=== PATIENT | female | born 1990 | race African-American/Black ===

== ENCOUNTER 2018-09-05 22:08 | Inpatient (IN) | payer MEDICAID ==
[~2018-09-05] VITALS: Ht 162.6 cm; Wt 81.6 kg
[2018-09-05] MEDS ORDERED: LACTATED RINGERS 1,000 ML IV SCH (22:26)
[2018-09-05] MEDS ORDERED: DEXT 5%/LR + PITOCIN 20UNITS/L 1,000 ML IV SCH (22:26)
[2018-09-05] MEDS ORDERED: MISOPROSTOL 100MCG TABLET VG NR (22:30)
[2018-09-05] MEDS ORDERED: NALOXONE HCL 0.4 MG/ML 1ML VIAL IM PRN (22:30)
[2018-09-05] MEDS ORDERED: CARBOPROST TROMETHAMINE 250 MCG/ML AMPUL IM PRN (22:30)
[2018-09-05] MEDS ORDERED: METHYLERGONOVINE MALEATE 0.2 MG/ML IM PRN (22:30)
[2018-09-05] MEDS ORDERED: AMPICILLIN 2,000 MG in SODIUM CHLORIDE 0.9% 100 ML IV SCH (23:00)
[2018-09-05] MEDS ORDERED: MORPHINE SULFATE/PF 1MG/ML 10ML AMP ONE (23:19)
[2018-09-05] MEDS ORDERED: FENTANYL CITRATE/PF 50MCG/ML 2ML VIAL ONE (23:19)
[2018-09-05 23:32] LABS: BASOPHILS % 0.8 % (0.0-2.0); EOSINOPHILS % 2.4 % (0.0-5.0); HEMATOCRIT. 41.4 % (36.0-48.0); HEMOGLOBIN. 13.9 g/dL (12.0-16.0); LYMPHOCYTES % 33.9 % (20.0-50.0); MEAN CORPUSCULAR HEMOGLOBIN 30.7 pg (28.0-32.0); MEAN PLATELET VOLUME 10.6 fl (7.4-10.4); MONOCYTES % 9.5 % (2.0-8.0); NEUTROPHILS % 53.4 % (40.0-76.0); PLATELET 220 x1000/uL (130-400); RED BLOOD CELL COUNT 4.55 mill/uL (4.2-5.4); RED CELL DISTRIBUTION WIDTH 13.1 % (11.6-14.6)
[2018-09-05 23:34] LABS: PARTIAL THROMBOPLASTIN TIME 30.5 sec (23.4-31.0)
[2018-09-05] MEDS ORDERED: MIDAZOLAM HCL 2 MG/2 ML VIAL ONE (23:49)
[2018-09-06 00:02] LABS: CLARITY URINE TURBID (CLEAR); COLOR URINE YELLOW (YELLOW); KETONES URINE 1+ (NEGATIVE); LEUKOCYTE ESTERASE URINE 2+ (NEGATIVE); NITRITE URINE NEGATIVE (NEGATIVE); OCCULT BLOOD URINE NEGATIVE (NEGATIVE); PH URINE 6.5 (4.5-8.0); PROTEIN URINE NEGATIVE (NEGATIVE); SPECIFIC GRAVITY URINE 1.016 (1.005-1.030)
[2018-09-06 00:13] LABS: HEPATITIS B SURFACE ANTIGEN NEGATIVE
[2018-09-06] MEDS ORDERED: RHO(D) IMMUNE GLOBULIN 300 MCG/SYR IM PRN (00:15)
[2018-09-06] MEDS ORDERED: HYDROCODONE/ACETAMINOPHEN 5/325MG TABLET PO PRN (00:15)
[2018-09-06] MEDS ORDERED: BISACODYL 10MG SUPP PR PRN (00:15)
[2018-09-06] MEDS ORDERED: IBUPROFEN 400MG TABLET PO PRN (00:15)
[2018-09-06 00:18] LABS: *AMPHETAMINES SCREEN URINE NEGATIVE (NEGATIVE); *BARBITURATES SCREEN URINE NEGATIVE (NEGATIVE); *BENZODIAZEPINES SCREEN URINE NEGATIVE (NEGATIVE); *COCAINE SCREEN URINE NEGATIVE (NEGATIVE); METHADONE URINE SCREEN NEGATIVE (NEGATIVE)
[2018-09-06 00:19] LABS: OPIATES URINE SCREEN NEGATIVE (NEGATIVE); PHENCYCLIDINE URINE SCREEN NEGATIVE (NEGATIVE)
[2018-09-06 00:21] LABS: CANNABINOID URINE SCREEN PRESUMTIVE POSITIVE (NEGATIVE)
[2018-09-06] MEDS ORDERED: OXYTOCIN 10 UNITS/ML 1ML ONE (00:41)
[2018-09-06] MEDS ORDERED: CEFAZOLIN SODIUM 1000MG/VIAL ONE (00:41)
[2018-09-06] MEDS ORDERED: BUPIVACAINE HCL/DEXTROSE/PF 0.75% 2ML AMP INJ ONE (00:42)
[2018-09-06] MEDS ORDERED: ONDANSETRON HCL 4MG/2ML INJ ONE (00:42)
[2018-09-06] MEDS ORDERED: DIPHENHYDRAMINE 50MG/ML VIAL IV PRN (01:00)
[2018-09-06] MEDS ORDERED: MORPHINE SULFATE 4 MG/ML CPJ (NOT FOR IM USE) IV PRN (01:00)
[2018-09-06] MEDS ORDERED: ONDANSETRON HCL 4MG/2ML INJ IV PRN (01:00)
[2018-09-06] MEDS ORDERED: KETOROLAC 30MG/ML VIAL IV PRN (01:15)
[2018-09-06 02:50] VITALS: BP 106/62
[2018-09-06] MEDS ORDERED: DEXT 5%/LR + PITOCIN 20UNITS/L 1,000 ML IV SCH (03:00)
[2018-09-06 03:05] VITALS: BP 110/70
[2018-09-06 03:50] VITALS: BP 110/77
[2018-09-06] MEDS: ACETAMINOPHEN WITH CODEINE 300/30MG TABLET PO PRN (06:56)
[2018-09-06] MEDS: PRENATAL VIT/FE FUMARATE/FA TABLET PO SCH (08:16)
[2018-09-06] MEDS: KETOROLAC 30MG/ML VIAL IV SCH ×3 (08:16→21:41)
[2018-09-06] MEDS: SIMETHICONE 80MG TABLET CHEW PO SCH ×3 (08:17→21:31)
[2018-09-06 08:30] VITALS: BP 116/69
[2018-09-06] MEDS ORDERED: METOCLOPRAMIDE HCL 10MG/2ML VIAL IV SCH (09:00)
[2018-09-06] MEDS ORDERED: KETOROLAC 30MG/ML VIAL ONE (14:35)
[2018-09-06 16:11] VITALS: BP 101/66
[2018-09-06 19:30] VITALS: BP 104/62
[2018-09-07 04:45] VITALS: BP 102/63
[2018-09-07 07:47] VITALS: BP 93/51
[2018-09-07] MEDS: SIMETHICONE 80MG TABLET CHEW PO SCH ×4 (09:00→21:28)
[2018-09-07] MEDS: IBUPROFEN 800MG TABLET PO PRN ×2 (09:02→17:47)
[2018-09-07] MEDS: MAGNESIUM/ALUMINUM HYDROXIDE/SIMETHICONE 30ML UDC PO SCH ×4 (09:02→21:27)
[2018-09-07] MEDS: PRENATAL VIT/FE FUMARATE/FA TABLET PO SCH (09:02)
[2018-09-07 16:21] VITALS: BP 116/72
[2018-09-07 19:45] VITALS: BP 106/67
[2018-09-07] MEDS: ACETAMINOPHEN WITH CODEINE 300/30MG TABLET PO PRN (21:41)
[2018-09-07 22:00] VITALS: BP 119/66
[2018-09-08 03:58] VITALS: BP 111/67
[2018-09-08 07:43] VITALS: BP 99/67
[2018-09-08] MEDS: MAGNESIUM/ALUMINUM HYDROXIDE/SIMETHICONE 30ML UDC PO SCH (08:40)
[2018-09-08] MEDS: PRENATAL VIT/FE FUMARATE/FA TABLET PO SCH (08:40)
[2018-09-08] MEDS: SIMETHICONE 80MG TABLET CHEW PO SCH (08:40)
[2018-09-08] MEDS: IBUPROFEN 800MG TABLET PO PRN (08:40)
[2018-09-08] MEDS: ACETAMINOPHEN WITH CODEINE 300/30MG TABLET PO PRN (12:31)
[2018-09-11 19:06] LABS: CANNABINOID CONFIRMATION URINE Positive (.)
== END 2018-09-08 12:50 | disposition home or self-care (01) | DRG 540 ==
LOC: 8 EST LDRP 22:08 → OBSVTOIN 22:08 → 8EST 09-06 02:30 → UNDODISIN 09-06 11:25
PROVIDERS: ADMIT Obstetrics & Gynecology; ATTEND Obstetrics & Gynecology
PROC: 10D00Z1 Extraction of Products of Conception, Low, Open Approach (ICD-10-PCS; principal; 2018-09-06)
DX: O34.211 Maternal care for low transverse scar from previous cesarean delivery (principal); Z37.0 Single live birth; Z3A.38 38 weeks gestation of pregnancy
CPT/HCPCS: 36415; 80305; 80349; 86592; 86703; 86762; 86850; 86900; 87340; 88307; 99281; J0290; J0690; J1885; J2250; J2270; J2274; J2405; J2590; J3010; J3490; J7050

== ENCOUNTER 2022-05-24 06:45 | Emergency (ER) | payer MEDICAID, OTHER ==
[~2022-05-24] VITALS: Ht 162.6 cm; Wt 70.2 kg
[2022-05-24] MEDS ORDERED: OXYCODONE HCL/ACETAMINOPHEN 5/325MG TABLET PO ONE ×2 (08:15→10:15)
[2022-05-24 10:39] LABS: BASOPHILS % 0.7 % (0.0-2.0); EOSINOPHILS % 2.4 % (0.0-5.0); HEMATOCRIT. 41.4 % (36.0-48.0); HEMOGLOBIN. 13.4 g/dL (12.0-16.0); LYMPHOCYTES % 16.3 % (20.0-50.0); MEAN CORPUSCULAR HEMOGLOBIN 29.7 pg (28.0-32.0); MEAN CORPUSCULAR VOLUME 91.8 fL (81.0-99.0); MONOCYTES % 8.2 % (2.0-8.0); NEUTROPHILS % 72.4 % (40.0-76.0); PLATELET 239 x1000/uL (130-400); RED BLOOD CELL COUNT 4.51 mill/uL (4.2-5.4); RED CELL DISTRIBUTION WIDTH 12.8 % (11.6-14.6)
[2022-05-24 10:45] LABS: CHLORIDE 105 mEq/L (98-107)
[2022-05-24 10:49] LABS: INR 1.1; PROTHROMBIN TIME 11.3 sec (9.6-11.0)
[2022-05-24] MEDS ORDERED: KETOROLAC 30MG/ML VIAL IV ONE (14:15)
[2022-05-24] MEDS ORDERED: OXYC-105 MT (14:39)
[2022-05-24] MEDS ORDERED: AMOX1TAB16 MT (14:39)
[2022-05-24 15:55] VITALS: BP 99/56
== END 2022-05-24 16:14 | disposition home or self-care (01) ==
LOC: ER 06:45
DX: S02.609A Fracture of mandible, unspecified, initial encounter for closed fracture (principal); Z20.822 Contact with and (suspected) exposure to COVID-19; Z98.890 Other specified postprocedural states; X58.XXXA Exposure to other specified factors, initial encounter; Y93.89 Activity, other specified; Y92.89 Other specified places as the place of occurrence of the external cause; Y99.8 Other external cause status
CPT/HCPCS: 36415; 70486; 80048; 81025; 85025; 85610; 86850; 86900; 86901; 87426; 96374; 99284; C9803; J1885

== ENCOUNTER 2022-06-01 11:43 | Emergency (ER) | payer OTHER ==
[~2022-06-01] VITALS: Ht 165.1 cm; Wt 77.0 kg
[~2022-06-01 11:43] MED LIST: AMOX1TAB16 MT; OXYC-105 MT
[2022-06-01 11:51] VITALS: BP 147/63
[2022-06-01] MEDS ORDERED: OXYC-100 MT (13:57)
== END 2022-06-01 15:16 | disposition home or self-care (01) ==
LOC: ER 11:43
DX: Z76.0 Encounter for issue of repeat prescription (principal); Z87.81 Personal history of (healed) traumatic fracture; Z98.890 Other specified postprocedural states
CPT/HCPCS: 99283